=== PATIENT | male | born 1980 | race African-American/Black ===

== ENCOUNTER 2021-01-31 01:45 | Emergency (ER) | payer OTHER ==
[~2021-01-31] VITALS: Ht 165.1 cm; Wt 56.7 kg
--- NOTE | ~2021-01-31 | EMS ---
[address] [address] EMS Patient Care Report Name: DANIA MCCONNELL Room #: DEP KAREN Benavides#: [id number] Admission: 01/31/21 Attend Phys: Discharge: 01/31/21 Date of : 78 Report #: [id number] THIS REPORT FOR: //name// Report Transmitted: 02/01/2021 09:20 EMS Care Summary [place], [place]/[facility] Incident [id number] @ 01/31/2021 01:11 Incident Location [address] [place] [address] Patient DANIA MCCONNELL Male, 40 Years 1980 Patient Address [address] [place] [address] Patient History Surgery, Patient Allergies No known allergies, Patient Medications None Reported, Chief Complaint Nasal congestion Disposition Transported No Lights/[place] Dispatch Reason Breathing Problem Transported To [facility] Narrative M42 and P42 arrived on a difficulty breathing call to find the pt out front of the residents complaining of nasal congestion. Pt stated that he had sinus surgery 18 months ago and wanted us to help flush him out. Pt had also been intoxicated but was AOX4. M42 assisted the pt with flushing both nostrils out [address] [address] EMS Patient Care Report Name: DANIA MCCONNELL Room #: DEP ER Arsenio.#: [id number] Admission: 01/31/21 Attend Phys: Discharge: 01/31/21 Date of : 78 Report #: [id number] with saline water but didn't do much good and the pt wanted us to transport him to a hospital. M42 assisted the pt onto the cot and into the unit for transport. While en route the pt was given a nasal cannula on 2 lm with no change upon arrival to the hospital where pt care was transferred to ER staff. M42 cleared Initial Vitals @01:32P: 91,R: 16,BP: 128/86,Pain: 2/10,GCS: 15,CO: 8,SpO2: 97,Revised Trauma: 12, @01:27P: 88,R: 16,BP: 130/92,Pain: 2/10,GCS: 15,CO: 14,SpO2: 96,Revised Trauma: 12, Assessments @01:20MENTAL:No Abnormalities,SKIN:No Abnormalities,HEENT:Head/Face: No Abnormalities,Eyes: No Abnormalities,Neck/Airway: No Abnormalities,LUNG SOUNDS:General: No Abnormalities,Left Upper: No Abnormalities,Right Upper: No Abnormalities,Left Lower: No Abnormalities,Right Lower: No Abnormalities,ABDOMEN:General: No Abnormalities,Left Upper: No Abnormalities,Right Upper: No Abnormalities,Left Lower: No Abnormalities,Right Lower: No Abnormalities,PELVIS//GI:No Abnormalities,EXTREMITIES:Left Arm: No Abnormalities,Right Arm: No Abnormalities,Left Leg: No Abnormalities,Right Leg: No Abnormalities,PULSE:NEURO:No Abnormalities,@01:35MENTAL:No Abnormalities,SKIN:No Abnormalities,HEENT:Head/Face: No Abnormalities,Eyes: No Abnormalities,Neck/Airway: No Abnormalities,LUNG SOUNDS:General: No Abnormalities,Left Upper: No Abnormalities,Right Upper: No Abnormalities,Left Lower: No Abnormalities,Right Lower: No Abnormalities,ABDOMEN:General: No Abnormalities,Left Upper: No Abnormalities,Right Upper: No Abnormalities,Left Lower: No Abnormalities,Right Lower: No Abnormalities,PELVIS//GI:No Abnormalities,EXTREMITIES:Left Arm: No Abnormalities,Right Arm: No Abnormalities,Left Leg: No Abnormalities,Right Leg: No Abnormalities,PULSE:NEURO:No Abnormalities, Impression Shortness of breath Procedures @01:18ALS AssessmentResponse: UnchangedSucceeded@01:25Oxygen FlowRate: 3 Device: Nasal Cannula (NC) Response: UnchangedSucceeded Timeline :,Call Received :,Dispatch Notified 01:11,Dispatched 01:12,En Route 01:17,On Scene :,At Patient [address] [address] EMS Patient Care Report Name: DANIA MCCONNELL Room #: [facility] KAREN Benavides#: [id number] Admission: 01/31/21 Attend Phys: Discharge: 01/31/21 Date of : 78 Report #: [id number] 01:18,ALS Assessment,Response: UnchangedSucceeded, 01:25,Oxygen FlowRate: 3 Device: Nasal Cannula (NC) Response: UnchangedSucceeded, 01:27,BP: 130/92 M,PULSE: 88,RR: 16 R,SPO2: 96 Ox,ETCO2: ,BG: ,PAIN: 2,GCS: 15, 01:30,Depart Scene 01:32,BP: 128/86 M,PULSE: 91,RR: 16 R,SPO2: 97 Ox,ETCO2: ,BG: ,PAIN: 2,GCS: 15, 01:53,At Destination 01:59,Call Closed Disclaimer v1.1 Copyright 2020 [employer] This EMS Care Summary contains data elements from the applicable legal record (which may be displayed differently). It is designed to provide pertinent information for the following purposes: continuity of care, clinical quality, and state data reporting. The complete legal record is available to ED staff and administrators of the receiving hospital in [employer] Patient Tracker. All data is provided "as is."
[~2021-01-31 01:45] MED LIST: FLEXERIL PO; NOHOMEMEDICATIONS; VICODIN 5-5001 EACH PO
[2021-01-31] MEDS ORDERED: MUCINEX D ER 61 EACH PO (02:25)
[2021-01-31 03:01] VITALS: BP 134/79
== END 2021-01-31 03:04 | disposition home or self-care (01) ==
LOC: ER 01:45
DX: F10.129 Alcohol abuse with intoxication, unspecified (principal); R09.81 Nasal congestion